=== PATIENT | male | born 1945 | race Caucasian/White ===

== ENCOUNTER 2025-06-23 06:10 | Observation (INO) ==
[2025-06-23] MEDS: FENTANYL VIAL INJ 100 mcg ONE (06:50)
[2025-06-23] MEDS: VERSED ONE (06:50)
[2025-06-23] MEDS: ZOFRAN INJ 4 MG VIAL ONE (06:50)
[2025-06-23] MEDS: OFIRMEV IV 1000 MG VIAL 1,000 MG/100 ML VIAL IV ONE (06:51)
[2025-06-23] MEDS: HEPARIN SODIUM INJ 5000 UNITS ONE (06:51)
[2025-06-23] MEDS: DIPRIVAN VIAL 20 ML ONE (06:51)
[2025-06-23] MEDS: LR 1,000 ML IV 1,000 ML IV ONE (06:54)
[2025-06-23] MEDS: PEPCID 20 MG VIAL ONE (06:59)
[2025-06-23] MEDS: LR 1,000 ML IV 1,300 ML IV PRN (07:00)
[2025-06-23] MEDS: HEPARIN 1000 UNIT/500 ML ONE (07:07)
[2025-06-23] MEDS: [UNRECOGNIZED DRUG - OTHER] ONE (07:07)
[2025-06-23] MEDS: ZOFRAN INJ 4 MG VIAL IVP PRN (07:10)
[2025-06-23] MEDS: PEPCID 20 MG VIAL IVP PRN (07:10)
[2025-06-23] MEDS: MARCAINE 0.5% ONE ×2 (07:13→08:25)
[2025-06-23 07:32] VITALS: BMI 21.5
[2025-06-23] MEDS: NS 100 ML IV 100 ML ONE (07:55)
[2025-06-23] MEDS: ANCEF VIAL 1 GRAM ONE (07:55)
[2025-06-23] MEDS: ANCEF VIAL 1 GRAM IV PRN (08:00)
[2025-06-23] MEDS: VERSED IVP PRN (08:03)
[2025-06-23] MEDS: PRECEDEX INJ VIAL IVP PRN (08:10)
[2025-06-23] MEDS ORDERED: XYLOCAINE 2 % (PLAIN) PRN (08:10)
[2025-06-23] MEDS: PROPOFOL IVP PRN (08:10)
[2025-06-23] MEDS: HEPARIN 1,000 UNIT/500 ML-NS 3,000 UNIT/1,500 ML IV.SOLN ONE (08:25)
[2025-06-23] MEDS: VISIPAQUE 100 ML ONE (08:39)
[2025-06-23] MEDS: OFIRMEV IV 1000 MG VIAL 1,000 MG/100 ML VIAL IV PRN (08:45)
[2025-06-23] MEDS ORDERED: DIPRIVAN VIAL 20 ML ONE (09:02)
[2025-06-23] MEDS ORDERED: HEPARIN SODIUM INJ 5000 UNITS IVP PRN (09:38)
[2025-06-23] MEDS ORDERED: HEPARIN SODIUM INJ 5000 UNITS ONE (09:38)
[2025-06-23] MEDS ORDERED: NS 500 ML IV 500 ML IV ONE (09:49)
[2025-06-23] MEDS ORDERED: XYLOCAINE 2 % (PLAIN) ONE (10:00)
[2025-06-23] MEDS ORDERED: KETAMINE HCL ONE (10:00)
[2025-06-23] MEDS ORDERED: PRECEDEX INJ VIAL ONE (10:00)
[2025-06-23] MEDS ORDERED: PROTAMINE SULFATE 50 MG VIAL ONE (10:12)
[2025-06-23] MEDS: PROTAMINE SULFATE 50 MG VIAL IVP PRN (10:13)
[2025-06-23] MEDS: FENTANYL VIAL INJ 100 mcg IVP PRN (10:14)
[2025-06-23] MEDS: KETAMINE HCL IV PRN (10:14)
[2025-06-23] MEDS ORDERED: BARHEMSYS INJ IVP PRN (10:26)
[2025-06-23] MEDS ORDERED: DILAUDID INJ IVP PRN (10:26)
[2025-06-23] MEDS ORDERED: ZOFRAN INJ 4 MG VIAL IVP PRN (10:26)
[2025-06-23] MEDS ORDERED: BENADRYL INJ 50 MG VIAL IVP PRN (10:26)
[2025-06-23] MEDS ORDERED: STERILE WATER IRRIGATION IR ONE (11:40)
--- NOTE | 2025-06-23 12:33 | OR.IMMED ---
IMMEDIATE POST-OP NOTE Immediate Post-Op Note Date of surgery/procedure: 06/23/25 Post-Op Diagnosis: Severe limb threatening ischemia of the right leg. 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
[2025-06-23] MEDS: PERCOCET TAB 5/325 MG PO PRN (13:03)
[2025-06-23] MEDS: LR 1,000 ML IV 1,000 ML IV SCH (13:28)
[2025-06-23] MEDS: XARELTO PO SCH (21:25)
[2025-06-23] MEDS: LOPRESSOR TAB 25 MG PO SCH (21:25)
[2025-06-24 06:06] LABS: MEAN PLATELET VOLUME 8.3 fL (7.4-11.0); RED CELL DISTRIBUTION WIDTH 16.1 % (11.6-16.5)
[2025-06-24] MEDS: ASPIRIN EC 81 MG PO SCH (08:28)
[2025-06-24] MEDS: PROTONIX TAB 40 MG PO SCH (08:28)
[2025-06-24 08:57] VITALS: BP 137/74; PULSE 70; RESP 20; TEMP 97.9; O2SAT 95
[2025-06-24] MEDS: HYDROCHLOROTHIAZIDE 12.5 MG CAP PO SCH (09:21)
[2025-06-24] MEDS: ZESTRIL TAB 40 MG PO SCH (09:22)
--- NOTE | 2025-06-24 10:15 | W.DIS.FURT ---
Summary of Discharge Discharge Summary of Date Date of Exam: 06/24/25 Admission Date Date of Admission: 06/23/25 Admission Diagnosis Hospital Course: 79-year-old male with significant peripheral vascular disease of the right leg who required right femoral endarterectomy and patch angioplasty as well as peripheral intervention of the right leg with angioplasty of the right anterior tibial artery and atherectomy and drug-coated balloon angioplasty of the right popliteal artery. He will be discharged home on his usual medications with addition of aspirin 81 mg daily and Xarelto 2.5 mg twice daily. He will follow- up in 1 week. Encourage ambulation. He may shower tomorrow. Vital Signs: Vital Signs (72 hours) 06/23/25 06:48 06/23/25 06:48 06/23/25 07:21 Temperature 98.0 F Pulse Rate 67 67 Pulse Rate [Left Radial] Respiratory Rate 20 Blood Pressure 171/80 Blood Pressure [Left Arm] O2 Sat by Pulse Oximetry 96 Oxygen Delivery Method Room Air Room Air 06/23/25 10:29 06/23/25 10:34 06/23/25 10:39 Temperature 97.0 F L Pulse Rate 52 L 57 L 56 L Pulse Rate [Left Radial] Respiratory Rate 18 16 16 Blood Pressure 123/62 120/61 122/65 Blood Pressure [Left Arm] O2 Sat by Pulse Oximetry 97 99 100 Oxygen Delivery Method Nasal Cannula Nasal Cannula Nasal Cannula 06/23/25 10:49 06/23/25 10:54 06/23/25 10:59 Temperature Pulse Rate 54 L 54 L 54 L Pulse Rate [Left Radial] Respiratory Rate 17 17 17 Blood Pressure 128/63 132/63 133/61 Blood Pressure [Left Arm] O2 Sat by Pulse Oximetry 100 100 100 Oxygen Delivery Method Nasal Cannula Nasal Cannula Nasal Cannula 06/23/25 11:04 06/23/25 11:15 06/23/25 11:30 Temperature 98.1 F 98.3 F Pulse Rate 52 L 55 L Pulse Rate [Left Radial] 54 L Respiratory Rate 17 18 17 Blood Pressure 129/63 133/66 Blood Pressure [Left Arm] 141/81 O2 Sat by Pulse Oximetry 100 100 99 Oxygen Delivery Method Nasal Cannula Nasal Cannula Room Air 06/23/25 11:45 06/23/25 12:00 06/23/25 12:15 Temperature 98.5 F 98.4 F 98.5 F Pulse Rate Pulse Rate [Left Radial] 58 L 68 64 Respiratory Rate 18 18 20 Blood Pressure Blood Pressure [Left Arm] 136/67 128/70 134/74 O2 Sat by Pulse Oximetry 95 97 95 Oxygen Delivery Method Room Air Room Air Room Air 06/23/25 12:30 06/23/25 13:03 06/23/25 13:30 Temperature 97.9 F 98 F Pulse Rate Pulse Rate [Left Radial] 60 62 Respiratory Rate 19 18 18 Blood Pressure Blood Pressure [Left Arm] 136/78 138/76 O2 Sat by Pulse Oximetry 96 99 Oxygen Delivery Method Room Air Room Air 06/23/25 14:03 06/23/25 14:30 06/23/25 15:30 Temperature 98.4 F 97.8 F Pulse Rate Pulse Rate [Left Radial] 72 72 Respiratory Rate 18 20 20 Blood Pressure Blood Pressure [Left Arm] 136/74 137/71 O2 Sat by Pulse Oximetry 97 96 Oxygen Delivery Method Room Air Room Air 06/23/25 16:30 06/23/25 19:00 06/23/25 20:00 Temperature 97.9 F 97.4 F L Pulse Rate Pulse Rate [Left Radial] 73 71 Respiratory Rate 18 19 Blood Pressure Blood Pressure [Left Arm] 135/72 154/74 O2 Sat by Pulse Oximetry 97 95 Oxygen Delivery Method Room Air Room Air Room Air 06/24/25 00:00 06/24/25 04:00 06/24/25 07:00 Temperature 98.1 F 98.4 F Pulse Rate Pulse Rate [Left Radial] 64 67 Respiratory Rate 20 18 Blood Pressure Blood Pressure [Left Arm] 150/65 138/71 O2 Sat by Pulse Oximetry 98 97 Oxygen Delivery Method Room Air Room Air Room Air 06/24/25 08:00 Temperature 97.9 F Pulse Rate Pulse Rate [Left Radial] 70 Respiratory Rate 20 Blood Pressure Blood Pressure [Left Arm] 137/74 O2 Sat by Pulse Oximetry 95 Oxygen Delivery Method Room Air Labs: Laboratory Last Values WBC 5.6 X10^3/uL (3.6-10.0) 06/24/25 05:12 RBC 3.95 X10^6/uL (4.7-6.0) L 06/24/25 05:12 Hgb 12.1 g/dL (13.5-18.0) L 06/24/25 05:12 Hct 36.4 % (42.0-54.0) L 06/24/25 05:12 MCV 92.2 fL (80.0-100.0) 06/24/25 05:12 MCH 30.7 pg (27.0-34.0) 06/24/25 05:12 MCHC 33.3 g/dL (33.0-35.0) 06/24/25 05:12 RDW 16.1 % (11.6-16.5) 06/24/25 05:12 Plt Count 163 X10^3/uL (150.0-450.0) 06/24/25 05:12 MPV 8.3 fL (7.4-11.0) 06/24/25 05:12 Neut % (Auto) 68.4 % (42.0-75.0) 06/24/25 05:12 Lymph % (Auto) 17.1 % (21.0-51.0) L 06/24/25 05:12 Henry % (Auto) 8.3 % (0.0-13.0) 06/24/25 05:12 Eos % (Auto) 3.9 % (0.9-2.9) H 06/24/25 05:12 Baso % (Auto) 2.3 % (0.2-1.0) H 06/24/25 05:12 Neut # (Auto) 3.8 x10^3/uL (2.2-4.8) 06/24/25 05:12 Lymph # (Auto) 1.0 X10^3/uL (1.3-2.9) L 06/24/25 05:12 Henry # (Auto) 0.5 x10^3/uL (0.3-0.8) 06/24/25 05:12 Eos # (Auto) 0.2 x10^3/uL (0.0-0.2) 06/24/25 05:12 Baso # (Auto) 0.1 X10^3/uL (0.0-0.1) 06/24/25 05:12 Absolute Nucleated RBC 0.1 /100WBC 06/24/25 05:12 Blood Type O POSITIVE 06/23/25 06:54 Antibody Screen Negative 06/23/25 06:50 Impression: see hospital course Reason For Visit: LIMB THREATENING ISCHEMIA RIGHT LEG Discharge Date Discharge Date: 06/24/25 Discharge Diagnosis All Active Problems (Updated 06/24/25 @ 10:14 by Malcom Gillis) Atherosclerosis of [place] arteries of extremities with rest pain, right leg (Acute) Flank pain (Active) Plan of Treatment: Continue with present treatment and follow up plan. Pt is to keep follow up appointment as instructed and take medications as ordered. Discharge Medications Discharge Medications: No Known Allergies Allergy (Verified 06/23/25 13:50) CONTINUE taking the following medications hydrochlorothiazide 12.5 mg tablet 12.5 mg PO QDAY 06/23/25 [History] hydrocodone 10 mg-acetaminophen 325 mg tablet 1 tab PO TID PRN 06/23/25 [History] metoprolol tartrate 25 mg tablet 12.5 mg PO BID 06/23/25 [History] Aspirin 81 mg daily Xarelto 2.5 mg twice daily Discharge Disposition Assessment: see hospital course Discharge Plan Discharge Plan Hospital Course: 79-year-old male with significant peripheral vascular disease of the right leg who required right femoral endarterectomy and patch angioplasty as well as p eripheral intervention of the right leg with angioplasty of the right anterior tibial artery and atherectomy and drug-coated balloon angioplasty of the right popliteal artery. He will be discharged home on his usual medications with addition of aspirin 81 mg daily and Xarelto 2.5 mg twice daily. He will follow- up in 1 week. Encourage ambulation. He may shower tomorrow. Patient Disposition: 01 HOME, SELF-CARE Condition: Stable Health Concerns: Post Hospitalization: new medications and changes needed to prevent readmission or further decline. Pt educated and given instructions on all concerns. Plan of Treatment: Continue with present treatment and follow up plan. Pt is to keep follow up appointment as instructed and take medications as ordered. Assessment: see hospital course Prescription drug monitoring program results: PDMP reviewed with concerns identified Prescriptions: New aspirin 81 mg tablet 81 mg PO QDAY Qty: 120 0RF oxycodone-acetaminophen [Percocet] 5-325 mg tablet 1 tab PO Q6H MDD 4 PRNQty: 30 0RF rivaroxaban [Xarelto] 2.5 mg tablet 2.5 mg PO BID Qty: 180 4RF Continued hydrocodone-acetaminophen 10-325 mg tablet 1 tab PO TID PRN metoprolol tartrate 25 mg tablet 12.5 mg PO BID hydrochlorothiazide 12.5 mg tablet 12.5 mg PO QDAY Orders to Discharge Patient Discharge Orders: Discharge (Routine); Ordered 06/24/25 Ordered By: Malcom Gillis Follow ups/Referrals Follow ups/Referrals: ANGELITA ARMANDO [Primary Care Provider, Unknown] - 1 WEEK Instructions Instructions: Endovascular Therapy for Peripheral Vascular Disease: What to Know After Stand Alone Forms: Excuse From Work or School, Find Help Web Site, Post Hospital Follow Up Care Print Language: MONGOLIAN
--- NOTE | 2025-06-24 11:56 | DR.OPNOTE ---
OP NOTE Pre-Op Diagnosis: Critical ischemia right leg Post-Op Diagnosis: Same, see findings Procedure Date Date Of Procedure: 06/23/25 Procedure: PROCEDURE: Right femoral endarterectomy with patch angioplasty, arteriogram right lower extremity, atherectomy and angioplasty of the proximal right anterior tibial artery, atherectomy and drug-coated balloon angioplasty of the right popliteal artery NARRATIVE: The patient was taken to the operative suite and placed in the supine position. The entire right leg and the left groin were prepped and draped in sterile fashion as was the lower abdomen. Patient was administered IV sedation supervised by myself. Timeout for the procedure obtained. The right groin was infiltrated with 0.5% Marcaine and a vertical incision made with #15 knife blade and sharp dissection carried out identifying the common femoral artery, superficial femoral artery and femoral profunda femoris artery. Patient had dense plaque in the common femolral artery with palpable distal right external iliac artery and soft superficial femoral artery beyond its takeoff. There was significant plaque into the profunda artery. Vessel loops placed in all these branches. Patient given 5000 units of heparin nd after 3 minutes all branches were clamped. The common femoral artery opened from soft vessel in the superficial artery to soft vessel iliac artery with a #11 plate and [place] scissors and endarterectomy carried out with a [place] dissector. All flolating material removed. Plaque entering the superficial artery was tacked down with interrupted 6-0 Prolene sutures and at this point the arteriotomy closed with a 0.8 cm wide by 8 cm long bovine pericardial patch sewing it into position with running 5-0 Prolene suture. All branches were released and patient had good flow requiring 2 areas of repair of the patch for further bleeding. Patient had excellent signals in all vessels. At this point a pursestring suture was placed in the patch and a needle placed throught this pursestring and a 0.12 inch wire placed. Incision made over the wire with an 11 knife blade and a micro sheath placed over this and the small wire exchanged for a 0.035 inch Advantage Glidewire and the small sheath exchanged for a 7 [place] vascular sheath. Arteriogram showed the rest of superficial artert to be patent and there was severe disease of the distal popliteal artery with two- vessel runoff via the anterior tibial artery and posterior tibial artery with severe disease of the takeoff of the anterior tibial artery. Guidewire was just placed down into the anterior tibial all the way to rthe ankle . This was se lective catheterization. The [place] catheter used to exchange the 0.035 inch wire for a 0.014 inch wire and over this wire we placed the [employer] atherectomy device and performed atherectomy of the distal popliteal artery and takeoff of the anterior tibial artery of the right leg. The anterior tibial artery proximally was then dilated with a C [place] 3 mm x 150 mm balloon inflated for 1 minute. The popliteal artery was then balloon dilated with a [place] 5 mm x 100 mm drug coated balloon inflated for 3 minutes. Post procedure arteriogram showed excellent flow through all of these vessels. Patient had been given 5000 units of heparin at the beginning of the case and was redosed at 1 hour with 2000 additional units of heparin . No reversal was given for the heparin. The sheath removed from the patch and the pursestring tied into position. There was no further bleeding. The right groin incision irrigated with saline. The groin closed with 2 layers of running 3-0 Vicryl suture and skin closed with skin francisca. Patient excellent Doppler signal at the ankle at the end of the case. Type of Anesthesia: Local (0.5% Marcaine) Anesthesia Comment: Plus MAC Findings: Completely occluded right common femoral artery extending into the proximal superficial femoral artery requiring endarterectomy and patch angioplasty. Arteriogram shows severe disease of the right distal popliteal artery and severe disease of the takeoff of the right anterior tibial artery. Runoff is via the anterior tib and posterior tibial arteries. Specimen/Pathology: none Type of Fluids Used:: Lactated Ringers Total Amount of Fluid Infused:: 1300cc Urine output: 250cc EBL: 150 cc Complications:: none Needle/Sponge Count:: correct Disposition/Condition: Pt. tolerated procedure without difficulty. Taken to [facility] in stable condition.
== END 2025-06-24 10:50 | disposition home or self-care (01) ==
LOC: MED/SURG 06:10 → SURG1 06:10 → MED/SURG 21:53
PROVIDERS: ADMIT Surgery; ATTEND Surgery